=== PATIENT | male | born 1960 | race Caucasian/White ===

== ENCOUNTER 2017-11-23 19:39 | Inpatient (IN) ==
[2017-11-23] MEDS ORDERED: NS 1,000 ML IV ONE ×2 (19:55→20:49)
[2017-11-23] MEDS ORDERED: ORPHENADRINE 60 MG/2 ML INJECTION IVP ONE (19:55)
[2017-11-23] MEDS ORDERED: ALBUTEROL/IPRATROPIUM 2.5mg-0.5mg/3ml NEB AEROSOL ONE (19:55)
[2017-11-23] MEDS ORDERED: KETOROLAC 30 MG/ML INJECTION IVP ONE (19:55)
--- NOTE | 2017-11-23 19:59 | Emergency Department Report ---
Chest Pain HPI - General Chief Complaint: Shortness of Breath/Dyspnea Stated Complaint: soa, left rib pain Time Seen by Provider: 11/23/17 19:47 Source: patient Mode of arrival: ambulatory Limitations: no limitations - History of Present Illness HPI narrative: Patient presents admittedly intoxicated, with cough and difficulty breathing, and left sided sharp intercostal chest pain for 2 days. Patient states that he has COPD, does not believe he has been running fever, but has had a cough and left chest pain for 2 days. Patient has not sought medical treatment until today. States that he has been trying to use alcohol to treat his chest pain, but admittedly this has not been working very well. Patient has COPD, uses albuterol, but is not sure how often he is been using it. Patient does have a history of pneumonia in the past and spontaneous pneumothorax in the past requiring chest tube placement at [facility]. Initially patient stated that he has been out of town living in [place], but then admitted that he has been in [place] as well. I discussed with the patient his narcotic use in the past as he seemed to have frequent and regular narcotic prescriptions, and the patient initially told me that he had stopped taking all narcotics one year ago. When pointed out that he had multiple prescriptions from his physician in [facility] monthly for the past year, the patient then stated that he has not had any narcotic prescriptions for the past 4 months. I again stated that the last prescription that the patient filled was October 13 of this year, and lipase about that the patient seemed to be quite disingenuous and actively lying about his narcotic use, patient simply stopped answering questions after that. - Related Data Home Medications Medication Instructions Recorded Confirmed Albuterol HFA Inhaler [Ventolin 2 puff INH Q4H PRN 11/23/17 11/23/17 Hfa 90 mcg/actuation] ClonazePAM [Klonopin] 1 mg PO HS 11/23/17 11/23/17 Tiotropium Handihaler [Spiriva] 1 cap INH DAILY 11/23/17 11/23/17 Allergies Allergy/AdvReac Type Severity Reaction Status Date / Time No Known Drug Allergies Allergy Unknown NONE Verified 11/23/17 20:21 Review of Systems All systems: reviewed and negative except as stated PFSH Patient Stated Medical History Parkinson's Disease Yes Bronchitis Yes Chronic Obstructive Pulmonary Yes Disease (COPD) Pneumonia Yes Substance Use Disorder Yes COPD Spontaneous pneumothorax Chronic back and neck pain Alcohol abuse Parkinson's Surgical History: Chest tube for spontaneous pneumothorax - Social History Smoking status: Current every day smoker Substance use type: does not use Alcohol intake frequency: 0-2 drinks per day Physical Exam - Limitations Limitations: no limitations - General General appearance: alert, in distress (patient appears intoxicated but in mild distress with tachycardia.), other (initially patient presented very dramatically to the nurse, unable to move or even speak without cringing in crying out in pain. However after I discussed the patient's narcotic use with him, his cringing in crying out stopped immediately, and the patient is now resting comfortably in the bed without any medications.) - Normal Exams: Head:: Normocephalic without trauma Eyes:: Pupils are PERRLA w/ EOMI, No scleral icterus, irritation, or foreign bodies noted ENMT:: No facial trauma, nasal exudates, pharyngeal erythema, or exudates are noted Neck:: Full range of motion, without adenopathy, JVD, bruits or thyromegaly Abdomen:: Bowel sounds positive, soft, non-tender, non-distended, no hepatosplenomegaly, masses or bruits noted Lymphatic:: No lymphadenopathy, or lymphedema noted Musculoskeletal:: No tenderness, or deformity noted, good range of motion, all extremities Integumentary:: No rashes, hives, or bruising noted, hair and nails, without abnormality Neurological:: Patient is alert, and oriented, cranial nerves, motor/sensory/ cerebellar, exams w/o gross deficits, to observation Psychiatric:: Patient exhibits, appropriate attention, emotion and affect - Chest Chest inspection: Present: normal inspection, symmetric chest wall rise, tenderness (moderate left lower anterolateral intercostal tenderness) - Respiratory Respiratory exam: Present: respiratory distress, wheezes, accessory muscle use, prolonged expiratory phase. Absent: normal lung sounds bilaterally (course rhonchi and wheezes bilaterally), stridor - Cardiovascular Cardiovascular exam: Present: regular rate, tachycardia, normal heart sounds Course Vital Signs Temperature 98 F 11/23/17 19:40 Pulse Rate 112 H 11/23/17 19:40 Respiratory Rate 25 H 11/23/17 19:40 Blood Pressure 140/85 H 11/23/17 19:40 Pulse Oximetry 94 11/23/17 19:40 Temperature 98 F 11/23/17 19:40 Pulse Rate 112 H 11/23/17 19:40 Respiratory Rate 18 11/23/17 20:04 Blood Pressure 140/85 H 11/23/17 19:40 Pulse Oximetry 93 11/23/17 20:04 Chest Pain - MDM Narrative Medical decision making narrative: Patient appears mildly intoxicated, and obviously presents very dramatically on initial presentation. Once the patient understood that we were aware of his previous narcotic use, and would not be using narcotics on him today, the patient's trauma decreased significantly Patient is given DuoNeb 2 immediately after initial physical exam Chest x-ray - right middle lobe consolidation, questionable bilateral basilar atelectasis versus bilobar pneumonia CBC - normal CMP - mild electrolyte abnormalities consistent with dehydration Lactate - elevated 3.1 UA/UDS - UA normal EtOH -elevated 220 Patient is started on Rocephin IV and Zithromax. Case is discussed with Dr. Vasquez Diaz, we'll admit inpatient to medical for pneumonia with sepsis - Lab Data Result diagrams: 11/23/17 20:09 11/23/17 20:09 Lab Results 11/23/17 11/23/17 11/23/17 Range/Units 20:09 20:09 20:33 WBC 4.5 (4.5-11.0) T/MM3 RBC 4.54 (4.50-5.90) M/MM3 Hgb 15.0 (13.5-17.5) GM/DL Hct 43.9 (41-53) % MCV 96.7 (80-100) UM3 MCH 33.0 (26-34) UUG MCHC 34.2 (31-37) GM/DL RDW Std Deviation 52.8 H (36.9-50.2) FL Plt Count 78 L (130-400) T/MM3 MPV 11.4 (9.4-12.4) UM3 Immature Gran % (Auto) 0.2 (0.0-0.5) % Neut % (Auto) 42.4 (33-66) % Lymph % (Auto) 47.8 H (23-45) % Harlan % (Auto) 6.9 (0-9.0) % Eos % (Auto) 2.0 (0-4) % Baso % (Auto) 0.7 (0-2) % Neut # (Auto) 1.9 (1.8-7.7) T/MM3 Lymph # (Auto) 2.2 (1-4.8) T/MM3 Harlan # (Auto) 0.3 (0-0.8) T/MM3 Eos # (Auto) 0.1 (0-0.5) T/MM3 Baso # (Auto) 0.0 (0-0.2) T/MM3 Abs Immat Gran (auto) 0.01 (0.00-0.03) T/MM3 Turbidity < 20 (0-20) Sodium 152 H (134-144) MEQ/L Potassium 3.4 L (3.6-5) MEQ/L Chloride 108 H (98-107) MEQ/L Carbon Dioxide 28 (22-30) MEQ/L Anion Gap 16 H (5-15) meq/L BUN 12.0 (9-20) MG/DL Creatinine 0.8 (0.8-1.5) mg/dL GFR Calculation 100 BUN/Creatinine Ratio 15 (6-26) RATIO Glucose 113 H (75-110) MG/DL Calculated Osmolality 293 H (261-280) MOSM/KG Calcium 9.5 (8.4-10.2) MG/DL Total Bilirubin 0.60 (0.20-1.30) MG/DL Conjugated Bilirubin 0.00 (0.00-0.30) mg/dL Unconjugated Bilirubin 0.20 (0.00-1.1) mg/dL Icterus Index < 2 (0-7) AST 117 H (17-59) U/L ALT 67 H (1-50) U/L Alkaline Phosphatase 73 (38-126) U/L Total Protein 7.6 (6.3-8.2) g/dL Albumin 4.5 (3.5-5.0) g/dL Globulin 3.1 (2.4-3.6) G/DL Albumin/Globulin Ratio 1.5 (1.1-2.2) RATIO Plasma Lactate 3.1 H (0.6-2.2) MMOL/L Specimen Hemolysis < 15 (0-25) Ur Collection Type Urine, void-cc/notcc Urine Color Yellow (YELLOW) Urine Clarity Clear Urine pH 5.5 (5.0-8.0) Ur Specific [place] >=1.030 H (1.015-1.025) Urine Protein Trace A (NEGATIVE) Urine Glucose (UA) Negative (NEGATIVE) Urine Ketones Trace A (NEGATIVE) Urine Occult Blood Trace-intact (NEGATIVE) Urine Nitrate Negative (NEGATIVE) Urine Bilirubin 1+ A (NEGATIVE) Urine Urobilinogen 1.0 (NORMAL) EU/DL Ur Leukocyte Esterase Trace A (NEGATIVE) Urinalysis Comment Microscopic not ind. Urine Opiates Screen ng/mL Ur Oxycodone Screen ng/mL Urine Methadone Screen ng/mL Ur Propoxyphene Screen ng/mL Ur Barbiturates Screen ng/mL U Tricyclic Antidepress ng/mL Ur Phencyclidine Scrn ng/mL Ur Amphetamines Screen ng/mL U Methamphetamines Scrn ng/mL U Benzodiazepines Scrn ng/mL Urine Cocaine Screen ng/mL U Cannabinoids Screen ng/mL Alcohol, Quantitative 220 (<10) mg/dL 11/23/17 Range/Units 20:33 WBC (4.5-11.0) T/MM3 RBC (4.50-5.90) M/MM3 Hgb (13.5-17.5) GM/DL Hct (41-53) % MCV (80-100) UM3 MCH (26-34) UUG MCHC (31-37) GM/DL RDW Std Deviation (36.9-50.2) FL Plt Count (130-400) T/MM3 MPV (9.4-12.4) UM3 Immature Gran % (Auto) (0.0-0.5) % Neut % (Auto) (33-66) % Lymph % (Auto) (23-45) % Harlan % (Auto) (0-9.0) % Eos % (Auto) (0-4) % Baso % (Auto) (0-2) % Neut # (Auto) (1.8-7.7) T/MM3 Lymph # (Auto) (1-4.8) T/MM3 Harlan # (Auto) (0-0.8) T/MM3 Eos # (Auto) (0-0.5) T/MM3 Baso # (Auto) (0-0.2) T/MM3 Abs Immat Gran (auto) (0.00-0.03) T/MM3 Turbidity (0-20) Sodium (134-144) MEQ/L Potassium (3.6-5) MEQ/L Chloride (98-107) MEQ/L Carbon Dioxide (22-30) MEQ/L Anion Gap (5-15) meq/L BUN (9-20) MG/DL Creatinine (0.8-1.5) mg/dL GFR Calculation BUN/Creatinine Ratio (6-26) RATIO Glucose (75-110) MG/DL Calculated Osmolality (261-280) MOSM/KG Calcium (8.4-10.2) MG/DL Total Bilirubin (0.20-1.30) MG/DL Conjugated Bilirubin (0.00-0.30) mg/dL Unconjugated Bilirubin (0.00-1.1) mg/dL Icterus Index (0-7) AST (17-59) U/L ALT (1-50) U/L Alkaline Phosphatase (38-126) U/L Total Protein (6.3-8.2) g/dL Albumin (3.5-5.0) g/dL Globulin (2.4-3.6) G/DL Albumin/Globulin Ratio (1.1-2.2) RATIO Plasma Lactate (0.6-2.2) MMOL/L Specimen Hemolysis (0-25) Ur Collection Type Urine Color (YELLOW) Urine Clarity Urine pH (5.0-8.0) Ur Specific [place] (1.015-1.025) Urine Protein (NEGATIVE) Urine Glucose (UA) (NEGATIVE) Urine Ketones (NEGATIVE) Urine Occult Blood (NEGATIVE) Urine Nitrate (NEGATIVE) Urine Bilirubin (NEGATIVE) Urine Urobilinogen (NORMAL) EU/DL Ur Leukocyte Esterase (NEGATIVE) Urinalysis Comment Urine Opiates Screen Negative ng/mL Ur Oxycodone Screen Negative ng/mL Urine Methadone Screen Negative ng/mL Ur Propoxyphene Screen Negative ng/mL Ur Barbiturates Screen Negative ng/mL U Tricyclic Antidepress Negative ng/mL Ur Phencyclidine Scrn Negative ng/mL Ur Amphetamines Screen Negative ng/mL U Methamphetamines Scrn Negative ng/mL U Benzodiazepines Scrn Negative ng/mL Urine Cocaine Screen Negative ng/mL U Cannabinoids Screen Negative ng/mL Alcohol, Quantitative (<10) mg/dL Critical Care Time Critical Care Time: Yes Total Critical Care Time: 40 Attestation: Patient required aggressive pulmonary care, and IV resuscitation for pneumonia with sepsis. Disposition Clinical Impression: Right middle lobe pneumonia Qualifiers: Pneumonia type: due to unspecified organism Qualified Code(s): J18.1 - Lobar pneumonia, unspecified organism Sepsis Qualifiers: Sepsis type: sepsis due to unspecified organism Qualified Code(s): A41.9 - Sepsis, unspecified organism Disposition: 02 To [facility] Acute Care Condition: Stable Prescriptions: No Action Tiotropium Handihaler [Spiriva] 1 cap INH DAILY Albuterol HFA Inhaler [Ventolin Hfa 90 mcg/actuation] 2 puff INH Q4H PRN PRN Reason: Prn Orders ClonazePAM [Klonopin] 1 mg PO HS - Seen By: physician
[2017-11-23] MEDS ORDERED: LEVOFLOXACIN 750 MG TABLET PO ONE (20:40)
[2017-11-23] MEDS ORDERED: CEFTRIAXONE (ER USE ONLY) 1 GM in NS 100 ML IV ONE (20:40)
[2017-11-23] MEDS ORDERED: SALINE FLUSH 10ml SYRINGE IVF PRN (20:49)
[2017-11-23] MEDS ORDERED: HYDROMORPHONE 2 MG/ML INJECTION IVP ONE (20:51)
[2017-11-23] MEDS: SALINE FLUSH 10ml SYRINGE IVF PRN ×2 (20:54→23:00)
[2017-11-23] MEDS ORDERED: AZITHROMYCIN IV 500 MG in NS 250ml 250 ML IV ONE (20:58)
[2017-11-23] MEDS ORDERED: ALBUTEROL 2.5mg/3ml (0.083%) NEB AEROSOL ONE (21:06)
[2017-11-23] MEDS ORDERED: MORPHINE SULFATE 2mg INJ IVP PRN (21:28)
[2017-11-23] MEDS ORDERED: CEFTRIAXONE 2 GM INJECTION IV SCH (21:28)
[2017-11-23] MEDS ORDERED: AZITHROMYCIN IV 500 MG in NS 250ml 250 ML IV SCH (21:28)
[2017-11-23] MEDS ORDERED: KETOROLAC 30 MG/ML INJECTION IVP PRN (21:28)
[2017-11-23] MEDS ORDERED: ENOXAPARIN 40 MG/0.4 ML INJECTION SQ SCH (21:30)
[2017-11-23] MEDS ORDERED: PANTOPRAZOLE 40 MG INJECTION IVP SCH (21:30)
--- NOTE | 2017-11-23 21:47 | XRay Report ---
EXAM: XR chest 2V HISTORY: cough, chest pain COMPARISON: No prior studies available for comparison. FINDINGS: The lung covarrubias are relatively hypoventilated. The heart appears within normal limits size. The trachea is midline. The pulmonary vascularity is normal. There are increased interstitial markings at the lung bases right greater than left likely reflecting atelectasis or early interstitial infiltrate. No acute consolidating infiltrates are seen. The costophrenic angles are clear. The bony thorax is unremarkable for the patient?s age. IMPRESSION: 1. The lung covarrubias are hypoventilated and there are increased interstitial markings at the bases likely reflecting atelectasis or early interstitial infiltrate. 2. No dense focal airspace consolidation is seen. .
[2017-11-23 21:52] VITALS: BMI 24.7
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
[2017-11-23] MEDS ORDERED: MAGNESIUM SULFATE 1gm PREMIX 1 GM/100 ML BAG IV ONE (22:38)
[2017-11-23] MEDS ORDERED: SALINE FLUSH 10ml SYRINGE ONE (22:40)
[2017-11-23] MEDS ORDERED: IOHEXOL 350mg/ml 75ml INJECTION ONE (22:40)
[2017-11-23] MEDS: ClonazePAM 1 MG TABLET PO SCH (23:01)
[2017-11-23] MEDS: HYDROCODONE/APAP 5mg/325mg TABLET PO PRN (23:15)
[2017-11-23] MEDS ORDERED: FALL RISK - PHARMACY CONSULT MC ONE (23:27)
[2017-11-23] MEDS: ENOXAPARIN 40 MG/0.4 ML INJECTION SQ SCH (23:47)
[2017-11-24] MEDS: SALINE FLUSH 10ml SYRINGE IVF PRN (00:28)
[2017-11-24] MEDS: 1/2 NS with KCL 20mEq 1,000 ML IV SCH ×2 (01:45→12:38)
[2017-11-24] MEDS: ALBUTEROL/IPRATROPIUM 2.5mg-0.5mg/3ml NEB AEROSOL SCH ×6 (03:09→23:09)
[2017-11-24] MEDS: HYDROCODONE/APAP 5mg/325mg TABLET PO PRN ×2 (04:11→08:45)
[2017-11-24] MEDS: MORPHINE SULFATE 4mg INJECTION IVP PRN ×4 (07:32→20:59)
--- NOTE | 2017-11-24 08:16 | Ultrasound Report ---
EXAM: US venous doppler LE BI HISTORY: pulm embolus COMPARISON: No prior studies available for comparison. Using duplex and color flow technology the deep venous system of the legs were evaluated throughout their length. No abnormal findings were demonstrated, specifically no intraluminal thrombus is seen. The deep venous system appears completely compressible throughout its length bilaterally. At the same time it shows the normal properties of spontaneous flow as well as augmentation. IMPRESSION: Negative venous ultrasound of both lower extremities. .
--- NOTE | 2017-11-24 08:37 | CT Scan Report ---
EXAM: CT angio pulm emboli HISTORY: chest/rib pain COMPARISON: Chest x-ray dated 11/23/[address] angio of the chest was performed with 74 cc of Omnipaque 350 intravenous contrast administration. Continuous thin section imaging was obtained through the thorax and coronal reconstruction images were performed. Thick SLAB MIP imaging was performed. The current CT scan was performed using radiation dose-reduction techniques. FINDINGS: The heart is within normal limits size. There is no pericardial effusion. There is no evidence of aneurysmal dilatation of the thoracic aorta but the thoracic aorta is not adequately opacified to assess for intimal flap or dissection. There is good opacification of the main pulmonary arteries but there is nonocclusive filling defect suggested in the secondary and tertiary branches to the left lower lobe and lingula. No definite filling defect is seen in the branches of the right pulmonary artery. Streak artifact does degrade several of the images. Mild centrilobular and paraseptal bullous emphysematous lung changes are noted. There is also subpleural bleb formation in the medial aspect of the right middle lobe. There is an irregular wedge-shaped opacity in the region of the lingula may represent subsegmental atelectasis or minimal infiltrate. Dependent atelectasis is seen in both lower lobes. 6 mm calcified granuloma posterior medial aspect of the right lower lobe. No mediastinal, hilar, or axillary adenopathy is visualized. Images through the upper abdomen shows fatty infiltration of the liver. There is no adrenal enlargement. A few scattered diverticula are seen along the visualized colonic loops. The spleen is enlarged measuring 15.7 cm. The osseous structures show mild degenerative thoracic spondylosis. No acute fractures or focal destructive lesions are identified. There are multiple old right-sided rib fracture deformities. IMPRESSION: 1. Small nonocclusive pulmonary emboli to the secondary and tertiary branches the left lower lobe and lingula. 2. Irregular wedge-shaped opacity in the lingula which may represent subsegmental atelectasis or minimal infiltrate. Recommend follow-up to ensure resolution. 3. Centrilobular and paraseptal bullous emphysematous lung changes. 4. Fatty infiltration of the liver. 5. Diverticulosis coli. 6. Splenomegaly. 7. Old granulomatous disease. A preliminary report was provided by [facility] imaging services immediately following the initial review of this examination 11/23/2017 at 11:35 PM. .
[2017-11-24] MEDS: MULTI-VITAMIN + MINERAL TABLET PO SCH (08:45)
[2017-11-24] MEDS: FOLIC ACID 1 MG TABLET PO SCH (08:45)
[2017-11-24] MEDS: THIAMINE 200mg/2ml INJECTION IVP SCH (08:45)
[2017-11-24] MEDS: CEFTRIAXONE 1 G in NS 100 ML IV SCH (08:46)
[2017-11-24] MEDS ORDERED: AZITHROMYCIN IV 500 MG in NS 250ml 250 ML IV SCH ×2 (09:00→20:00)
[2017-11-24] MEDS ORDERED: ENOXAPARIN 80 MG/0.8 ML INJECTION SQ SCH (09:00)
[2017-11-24] MEDS: HYDROCODONE/APAP 10 MG/325 MG TABLET PO PRN ×3 (12:40→23:55)
[2017-11-24] MEDS: ALBUTEROL 2.5mg/3ml (0.083%) NEB AEROSOL PRN ×2 (13:03→21:38)
[2017-11-24] MEDS ORDERED: LORazepam 1 MG TABLET PO ONE (15:29)
--- NOTE | 2017-11-24 17:01 | History & Physical Report ---
- History and Physical History and Physical: Dr. Diaz's note reviewed. Mr. Farfan interviewed and examined. CC: Shortness of breath HPI: Mr. Farfan is a 57-year-old male who recently moved to [place] after previously living in [place] where COPD and Parkinson's disease were diagnosed. The patient reports developing a cough about 2-3 days ago with dark sputum production. He denies fevers, chills, or sweats but has had accompanying pleuritic pain in the posterior left chest wall. Chest wall pain began after he fell due to uncontrolled tremors/Parkinson's several days before the cough. He was able to get up independently after a couple of minutes. Patient also reports he was out of heat in his apartment for several days but he has subsequently contacted the [employer] and he has been turned back on. He tried controlling chest wall pain with alcohol but found this to be ineffective and subsequently presented to the emergency room. Last drink reported to be about 2 days ago and patient chronically drinks half pint of vodka a day. There chest x- ray suggested right middle lobe pneumonia, CTA of the chest revealed nonocclusive pulmonary emboli in the secondary and tertiary branches of the left lower lobe/lingula, minor opacity in the lingula (atelectasis versus infiltrate), old rib fractures on the right, and bullous emphysematous change in the lungs. Lactic acid was elevated and the patient was admitted for sepsis in conjunction with possible pneumonia. PH/SH/FH: agree with that recorded previously by Dr. Diaz with additions of anxiety, history CVA with identified by CTs, hepatitis C previously treated with her bony, and "a touch of cirrhosis". Father had lung cancer and Parkinson' s disease and is still alive. Family history is noted-frequent narcotic use identified from database per ER report; no primary care physician, DO NOT RESUSCITATE, no alternate decision maker designated by patient. ROS: 12 point review systems is previously described by Dr. Diaz with my only addition that patient becomes short of breath after ambulating one half block. EXAM: General-NAD, alert, cooperative, fluent speech HEENT-PERRL, EOMI without nystagmus, conjunctiva clear, sclera anicteric, conjugate gaze, facial structures symmetric, oropharynx clear, neck supple and without adenopathy Lungs-respirations nonlabored, coarse breath sounds bilaterally-right greater than left, no wheezing appreciated Cardiac-regular rhythm, S1-S2 Abd-soft, nontender, bowel sounds present Ext-without edema Neuro-course tremor bilateral upper extremities and lower extremities, greater on the right side; increased motor tone, cogwheeling present; motor power grossly intact although slight right lower extremity proximal weakness evident. Sensation intact to light touch 4 extremities, cranial nerves 3-12 intact Psych-calm, cooperative, pleasant DATA: Please refer to Dr. Diaz's note for initial CBC; this morning WBC 3.2, hemoglobin 12.5, platelet count 64K. Sodium 152-152-144, potassium 3.4-3.3-3.5, anion gap 16-15-10, creatinine today 0.7, AST 117, ALT 67, lactic acid 3.1-2.9-1.8. Urine drug screen negative, alcohol level on admission 220. Urinalysis consistent with dehydration with elevated specific gravity and trace ketones, respiratory viral panel negative. Chest x-ray reviewed by myself-hypoventilation, no infiltrate appreciated by my review CTA of chest also reviewed by myself and discussed with radiology with following findings: No right middle lobe infiltrate, minor opacity in the lingula-likely atelectasis; splenomegaly, old right rib fractures acute fractures left posterior lateral 11th rib; areas of incomplete opacification of secondary and tertiary pulmonary arteries in the left lower lobe and lingula which could reflect old recannulated PEs or in adequate dye bolus after discussion with radiology, centrilobular and paraseptal bullous emphysema, fatty infiltration of the liver, old granulomatous disease. Venous Doppler of the lower extremities-negative for DVT A/P: Acute bronchitis COPD with exacerbation Acute left rib fracture Pleuritic chest pain Dehydration Hypernatremia Hypokalemia Ambulatory dysfunction Parkinson's disease Alcohol/tobacco/narcotic abuse Pancytopenia Splenomegaly History hepatitis C-previously treated Cirrhosis Lactic acidosis-consistent with liver disease Continue IV fluids with supplemental potassium; given correction of hypernatremia will switch from 1/2 NS to NS. Continue azithromycin/ceftriaxone pending blood cultures-sputum culture ordered but unlikely patient will be able to provide specimen due to pain associated with inspiration/cough. Add budesonide to breathing treatments. Patient does have a nebulizer and uses albuterol at home chronically. After discussion with radiology I do not believe patient has acute pulmonary emboli and will discontinue Lovenox. However he has an acute fracture in the posterior lateral left lower ribs which will require ongoing pain management. [place] increased to 10 mg one 4 times a day when necessary-ER notations reviewed. Dr. Lake will be consulted regarding Parkinson's disease, patient reports prior trial with carbidopa/levodopa which was unsuccessful. Patient insists only chronic therapy is clonazepam. Lactic acidosis has cleared with volume replacement, given known history cirrhosis I think it's unlikely that infection was cause of lactic acidosis believe dehydration with poor liver function was causative. Alcohol withdrawal protocol ordered on admission and will be continued. Patient requests DO NOT RESUSCITATE be written; implications of the order have been reviewed with him and he is consistent that he does not wish compressions, defibrillation, or intubation performed in the event of natural . Case management consult to assist with local resources. Patient was previously on disability in another state and will need to begin application if he intends to stay in [place]. d/w Dr. Lake.
[2017-11-24] MEDS: NS with KCL 20 mEq 1,000 ML IV SCH (17:15)
[2017-11-24] MEDS: BUDESONIDE INH.SOLN 0.5mg/2ml NEB AEROSOL SCH (19:31)
[2017-11-24] MEDS: ClonazePAM 1 MG TABLET PO SCH (22:21)
[2017-11-25] MEDS: ENOXAPARIN 40 MG/0.4 ML INJECTION SQ SCH (00:07)
[2017-11-25] MEDS: ALBUTEROL/IPRATROPIUM 2.5mg-0.5mg/3ml NEB AEROSOL SCH ×3 (02:57→12:23)
[2017-11-25] MEDS: HYDROCODONE/APAP 10 MG/325 MG TABLET PO PRN ×2 (04:14→09:18)
[2017-11-25] MEDS: NS with KCL 20 mEq 1,000 ML IV SCH (05:49)
[2017-11-25] MEDS ORDERED: AZITHROMYCIN 500 MG TABLET PO SCH (06:30)
[2017-11-25] MEDS ORDERED: PANTOPRAZOLE 40 MG TABLET PO SCH (06:30)
[2017-11-25 08:20] VITALS: BP 136/99; TEMP 97.1
[2017-11-25] MEDS: BUDESONIDE INH.SOLN 0.5mg/2ml NEB AEROSOL SCH (08:22)
[2017-11-25] MEDS: THIAMINE 200mg/2ml INJECTION IVP SCH (09:18)
[2017-11-25] MEDS: FOLIC ACID 1 MG TABLET PO SCH (09:18)
[2017-11-25] MEDS: MULTI-VITAMIN + MINERAL TABLET PO SCH (09:18)
[2017-11-25] MEDS: CEFTRIAXONE 1 G in NS 100 ML IV SCH (09:18)
[2017-11-25] MEDS ORDERED: PRIMIDONE 50 MG TABLET PO ONE (10:48)
[2017-11-25 10:56] VITALS: PULSE 90
--- NOTE | 2017-11-25 11:14 | XRay Report ---
Indication: dyspnea PROCEDURE: XR chest 2V: Encounter: Initial Comparison: 11/23/2017 Findings: Is a developing opacity in the posterior inferior left lung base compatible with atelectasis and/or pneumonia. Heart size is normal. No definite pleural effusion. No mediastinal or hilar adenopathy. The trachea is midline. Impression: Left posterior basilar atelectasis and/or pneumonia. .
[2017-11-25 12:39] VITALS: RESP 16; O2SAT 93
--- NOTE | 2017-11-25 13:21 | Discharge Summary ---
Discharge Information Date of admission: 11/23/17 20:59 Anticipated date of discharge: 11/25/17 Attending Physician: Mirna Mcfarlane MD Consults: 11/24/17 16:50 Physician Consult Consulting Provider: Grecia Lake Reason For Exam: Parkinson's? - Discharge Diagnosis (1) Pneumonia Status: Acute Acute bronchitis vs. pneumonia. COPD with acute exacerbation. Pancytopenia Acute left rib fracture. Pleuritic chest pain. Dehydration - resolved. Hypernatremia - resolved. Hypokalemia - resolved. Ambulatory dysfunction. Parkinson's disease. Alcohol/tobacco/narcotic abuse. Splenomegaly. History hepatitis C-previously treated. Cirrhosis. Lactic acidosis-consistent with liver disease - resolved. - Laboratory Labs: 11/25/17 04:31 11/25/17 04:31 - Microbiology Microbiology 11/24/17 00:31 Urine Legionella Urinary Antigen - negative Blood cultures 2 negative at discharge - Radiology Radiology: Date of Exam: 11/23/17 Type of Exam(s): XR chest 2V Reason for Exam(s): cough, chest pain FINDINGS: The lung covarrubias are relatively hypoventilated. The heart appears within normal limits size. The trachea is midline. The pulmonary vascularity is normal. There are increased interstitial markings at the lung bases right greater than left likely reflecting atelectasis or early interstitial infiltrate. No acute consolidating infiltrates are seen. The costophrenic angles are clear. The bony thorax is unremarkable for the patient?s age. IMPRESSION: 1. The lung covarrubias are hypoventilated and there are increased interstitial markings at the bases likely reflecting atelectasis or early interstitial infiltrate. 2. No dense focal airspace consolidation is seen. Date of Exam: 11/23/17 Type of Exam(s): CT angio pulm emboli Reason for Exam(s): chest/rib pain FINDINGS: The heart is within normal limits size. There is no pericardial effusion. There is no evidence of aneurysmal dilatation of the thoracic aorta but the thoracic aorta is not adequately opacified to assess for intimal flap or dissection. There is good opacification of the main pulmonary arteries but there is nonocclusive filling defect suggested in the secondary and tertiary branches to the left lower lobe and lingula. No definite filling defect is seen in the branches of the right pulmonary artery. Streak artifact does degrade several of the images. Mild centrilobular and paraseptal bullous emphysematous lung changes are noted. There is also subpleural bleb formation in the medial aspect of the right middle lobe. There is an irregular wedge-shaped opacity in the region of the lingula may represent subsegmental atelectasis or minimal infiltrate. Dependent atelectasis is seen in both lower lobes. 6 mm calcified granuloma posterior medial aspect of the right lower lobe. No mediastinal, hilar, or axillary adenopathy is visualized. Images through the upper abdomen shows fatty infiltration of the liver. There is no adrenal enlargement. A few scattered diverticula are seen along the visualized colonic loops. The spleen is enlarged measuring 15.7 cm. The osseous structures show mild degenerative thoracic spondylosis. No acute fractures or focal destructive lesions are identified. There are multiple old right-sided rib fracture deformities. IMPRESSION: 1. Small nonocclusive pulmonary emboli to the secondary and tertiary branches the left lower lobe and lingula. 2. Irregular wedge-shaped opacity in the lingula which may represent subsegmental atelectasis or minimal infiltrate. Recommend follow-up to ensure resolution. 3. Centrilobular and paraseptal bullous emphysematous lung changes. 4. Fatty infiltration of the liver. 5. Diverticulosis coli. 6. Splenomegaly. 7. Old granulomatous disease. Date of Exam: 11/24/17 Type of Exam(s): US venous doppler LE Reason for Exam(s): pulm embolus Using duplex and color flow technology the deep venous system of the legs were evaluated throughout their length. No abnormal findings were demonstrated, specifically no intraluminal thrombus is seen. The deep venous system appears completely compressible throughout its length bilaterally. At the same time it shows the normal properties of spontaneous flow as well as augmentation. IMPRESSION: Negative venous ultrasound of both lower extremities. -- Date of Exam: 11/25/17 Type of Exam(s): XR chest 2V Reason for Exam(s): dyspnea Findings: Is a developing opacity in the posterior inferior left lung base compatible with atelectasis and/or pneumonia. Heart size is normal. No definite pleural effusion. No mediastinal or hilar adenopathy. The trachea is midline. Impression: Left posterior basilar atelectasis and/or pneumonia. History of Present Illness HPI: Mr. Farfan is a 57-year-old male who recently moved to [place] after previously living in [place] where COPD and Parkinson's disease were diagnosed. The patient reports developing a cough about 2-3 days ago with dark sputum production. He denies fevers, chills, or sweats but has had accompanying pleuritic pain in the posterior left chest wall. Chest wall pain began after he fell due to uncontrolled tremors/Parkinson's several days before the cough. He was able to get up independently after a couple of minutes. Patient also reports he was out of heat in his apartment for several days but he has subsequently contacted the [employer] and he has been turned back on. He tried controlling chest wall pain with alcohol but found this to be ineffective and subsequently presented to the emergency room. Last drink reported to be about 2 days ago and patient chronically drinks half pint of vodka a day. There chest x- ray suggested right middle lobe pneumonia, CTA of the chest revealed nonocclusive pulmonary emboli in the secondary and tertiary branches of the left lower lobe/lingula, minor opacity in the lingula (atelectasis versus infiltrate), old rib fractures on the right, and bullous emphysematous change in the lungs. Lactic acid was elevated and the patient was admitted for sepsis in conjunction with possible pneumonia. Objective Vital signs: Temperature 97.1 F 11/25/17 08:18 Pulse Rate 90 11/25/17 08:48 Respiratory Rate 16 11/25/17 12:23 Blood Pressure 136/99 H 11/25/17 08:18 Pulse Oximetry 93 11/25/17 12:23 Height/Weight/BMI: Height 5 ft 9 in Weight 180 lb 5.41 oz Body Mass Index 24.7 Comments: Resting in bed; eager for discharge. - Constitutional Present: no acute distress, well nourished, well developed, cooperative - Routine HEENT Exam Head: Present: normocephalic, atraumatic Eye: Present: PERRL. Absent: conjunctival icterus ENT: Present: mucous membranes moist - Routine Respiratory Exam Present: decreased breath sounds, wheezes, diminished air movement - Routine Cardiovascular Exam Present: S1, S2 - Routine Abdominal Exam Present: soft, normoactive bowel sounds, non distended, non tender - Routine Extremities Exam Present: no edema, pulses intact - Routine Back/Spine/Pelvis Exam Back/Spine: Present: full ROM. Absent: vertebral tenderness - Routine Musculoskeletal Exam Musculoskeletal: Present: moving extremities well - Routine Skin Exam Present: dry, warm Comments: Afebrile. - Routine Neurological Exam Present: alert, moving all extremities, hearing grossly intact, normal speech, tremors - Routine Lymphatic Exam Lymphatic: Absent: lymphedema - Routine Psychiatric Exam Present: cooperative Hospital Course This is a general summary of the patient's hospital course. For more details refer to the complete medical record. Hospital course: Patient was admitted to observation status. He was started on Rocephin and azithromycin for brochitis vs. pneumonia. CT chest was obtained and revealed nonocclusive PE in the lower left lobe and lingula as well as irregular wedge- shaped opacity in lingula which may represent atelectasis or minimal infiltrate and emphysematous lung changes. Discussion with the radiologist believed the PE was most likely not acute. Elevated lactate noted on admission most likely secondary to chronic liver disease. Patient was adequately hydrated with continuous IV fluids supplemented with potassium give hypokalemia on admission. Given his history of alcohol and narcotic abuse, he was treated with multivitamins and thiamine. Given his history of 1/2 pint of vodka daily, Ativan was available and he was monitor closely for signs of alcohol withdrawal and seizures, neither of which occurred. Imaging revealed an acute left sided rib fracture which was treated with pain control. Respiratory cares were initiated and he was started on budesonide BID as well as DuoNeb Q6H and PRN. Lovenox was initiated in light of old PE and DVT prophylaxis. Acapella and incentive spirometry were encouraged. Given his history of Parkinson's disease and tremors, he was evaluated by Dr. Lake, neurology, who recommended initiation of Primidone 25mg BID and continuation of his home Klonopin 1mg daily. His breathing remained stable and he was eager for discharge. He will be discharged home with refill prescriptions for his Spiriva and Albuterol inhalers as well as [place] 10/325 #20 for pain control given his rib fracture. He was instructed to continue his home medications as directed and establish care with a PCP. Follow up with Dr. Lake in 2-3 weeks. Time spent with patient: greater than 35 minutes Resuscitation Status: Do Not Resuscitate Discharge Plan - Discharge Disposition Discharge Date: 11/25/17 Disposition: 01 Discharged Home, Self-Care *Condition: Stable Reason For Visit (Visit label in EMR): Pneumonia with sepsis - Discharge Medications *Discharge Medications: New Folic Acid [Folate] 1 mg PO DAILY #30 tab Hydrocodone/APAP 10/325 [[place] 10/325] 1 tab PO Q4H PRN #20 tab PRN Reason: Pain Multi-Vitamin + Mineral [Therapeutic - M] 1 tab PO DAILY #30 tab Primidone [Mysoline] 25 mg PO BID #60 tab Azithromycin [Zithromax] 500 mg PO ACB #4 tab Pantoprazole Tab [Protonix Tab] 40 mg PO ACB #30 tab Continue Albuterol HFA Inhaler [Ventolin Hfa 90 mcg/actuation] 2 puff INH Q4H PRN #1 inhaler PRN Reason: Prn Orders ClonazePAM [Klonopin] 1 mg PO HS #30 tab Tiotropium Handihaler [Spiriva] 1 cap INH DAILY #1 inhaler - Discharge Packet/Instructions *Diet: Regular. *Activity: As tolerated. *Pain Management/Treatment: [place] 10/325 every 4-6 hours as needed. *Wound Care: None. Additional Instructions: You were started on an antibiotic (Azithromycin) for pneumonia. Continue until complete. Follow up with Dr. Lake in the clinic in 2-3 weeks - call clinic to schedule. Establish care with a primary doctor as soon as possible. Take all home medications as directed. Do not drive or operate heavy machinery while taking [place]. Continue inhalers as directed. *Expected Signs/Symptoms: Gradual improvement and return back to prior functional status. *Notify Physician if: fever >100.8, increasing shortness of breath, chest pain, dizziness, lightheadedness, passing out, change or worsening of condition, additional questions or concerns. *During Business Hours Contact: [facility] [place] at [phone]. *After Business Hours Contact: the on-call physician for [facility] at [phone] or present to the nearest emergency room. *Pending Lab/Results: No Pending Lab - Referrals/Follow Up *Referrals/Follow Up: Grecia Lake MD [Physician] - 2 Weeks (Follow up regarding initiation of Primidone 25mg twice daily started on 11/25/17 within the next 2-3 weeks.) - Patient Handouts Patient Handouts: Sepsis (GEN), Pneumonia (GEN) - Dismissal Complete Discharge Instructions are:: Complete Physician Narrative - Narrative Physician: Mirna Mcfarlane MD Attestation Narrative: Date: 11/25/17 Time: 1530 I have independently evaluated and examined this patient. I reviewed the chart, the patient's history, and the RELIGIOUS ACTIVITIES DIRECTOR/PA's documented findings as above. We discussed and formulated the assessment and plan as above with additions as below: Mr. Farfan was anxious to discharge when seen this morning indicating that his cat was home and unattended; he reported improvement in pain control with [place] and decreased cough. On examination he had diffuse expiratory wheezing throughout both lung covarrubias which he reported albuterol with help (although he' s been receiving breathing treatments since admission); tremor is less evident than when seen yesterday but remains present. Repeat chest x-ray reviewed by myself revealing atelectasis/possible infiltrate at the left base. Stable for discharge however with continued treatment for community-acquired pneumonia. Will try to obtain samples of Spiriva so he can resume use, case management assisting with medications due to patient's limited funding and lack of [place] Medicaid at this time. [facility]. I am concerned that part of the patient's need for discharge urgently this morning is related to alcohol use.
--- NOTE | 2017-11-25 15:37 | Consultation ---
DATE OF CONSULTATION 11/25/2017 REFERRING PHYSICIAN Mirna Mcfarlane MD CHIEF COMPLAINT The patient's chief complaint is tremor. HISTORY OF PRESENT ILLNESS The patient is a 57-year-old male with history of Parkinson disease and COPD who presented to [facility] with excessive coughing and chest discomfort. The patient was treated for possible pneumonia and pulmonary emboli. He has done better with his breathing. The patient has been taking clonazepam for his Parkinson symptoms. The patient said that this was diagnosed a few years ago in [place]. He was tried on carbidopa-levodopa at that time and he did not respond well to medication. He was tested for Parkinson doing at [facility] which was positive for Parkinson. The patient said he has done well with the with the clonazepam at 1 mg q.h.s. This has helped his tremor and mobility overall. The patient's symptoms have been worse during this admission most likely due to the increased amount of bronchodilators he has been receiving for his COPD and breathing problems. This can have a chronic effect on him also with his tremor and jerkiness. PHYSICAL EXAMINATION The patient was awake, alert, oriented x 3. Pupils were round, reactive and equal. Extraocular muscles were intact. Visual field was full. Speech was fluent. Motor examination was 5-/5 in all extremities. Sensory examination was symmetrical for light touch and pinprick. Deep tendon reflexes were 2/4. Plantar reflexes were in flexion bilaterally. Coordination for [id number] was slower on the right compared to the left. The patient had increased cogwheel rigidity on the right compared to the left. He also had bradykinesia and slowing of movement on the right compared to the left. The patient was having continuous postural and resting tremor during the visit. This has affected his right arm and right leg mainly. ASSESSMENT 1. Parkinson disease not responding to typical medications including carbidopa and levodopa. The patient has had good response to clonazepam 1 mg p.o. q.h.s. This can be continued for now. 2. Postural tremor associated with usage of bronchodilator medication for his COPD. Those can be attenuated by using medication like primidone. PLAN 1. Continue clonazepam 1 mg p.o. q.h.s. for Parkinson and leg jerkiness. 2. Start primidone 25 mg p.o. b.i.d. for postural tremor induced by usage of bronchodilators. 3. Consider adding Requip or Mirapex if having worsening of parkinsonian symptoms. MTDD
[2017-11-25] MEDS ORDERED: PRIMIDONE 50 MG TABLET PO SCH (21:00)
== END 2017-11-25 13:10 | disposition home or self-care (01) | DRG 190 ==
LOC: ED 19:39 → MED 20:59
PROVIDERS: ADMIT Emergency Medicine; ATTEND Internal Medicine